=== PATIENT | female | born 1965 | race Caucasian/White ===

== ENCOUNTER 2023-11-14 23:05 | Inpatient (IN) | payer OTHER ==
[~2023-11-14] VITALS: Ht 170.2 cm; Wt 59.6 kg
[2023-11-15] VITALS (9 sets, daily range): BP systolic 98–127; BP diastolic 50–80; PULSE 81–101; RESP 16–20; TEMP 101.7; O2SAT 98
[2023-11-15] MEDS: LIDOCAINE HCL 2% JELLY 5 ML TP SCH
[2023-11-15 00:26] LABS: CREATININE 0.6 mg/dL (0.5-1.0); POTASSIUM 3.4 mmol/L (3.5-5.1)
[2023-11-15 00:30] LABS: BASOPHILS # (AUTO) 0.02 K/uL (0.00-0.20); BASOPHILS % (AUTO) 0.3 % (0.0-5.0); EOSINOPHILS # (AUTO) 0.01 K/uL (0.00-0.70); EOSINOPHILS % (AUTO) 0.2 % (0.0-8.0); HEMATOCRIT 28.2 % (36-48); IMMATURE GRANULOCYTE ABSOLUTE 0.07 K/uL (0-1); LYMPHOCYTES # (AUTO) 1.1 K/uL (1.0-4.8); MEAN CORPUSCULAR HEMOGLOBIN 29.2 pg (27.0-33.0); MEAN CORPUSCULAR HGB CONC 34.8 g/dL (32.0-36.0); MEAN CORPUSCULAR VOLUME 83.9 fL (79-99); MONOCYTES # (AUTO) 0.4 K/uL (0.1-1.0); MONOCYTES % (AUTO) 6.2 % (3.0-13.0); NEUTROPHILS % (AUTO) 75.2 % (40.0-77.0); PLATELET COUNT (AUTO) 196 K/uL (130-400); RED BLOOD CELL COUNT(AUTO) 3.36 MIL/uL (4.00-5.50); RED CELL DISTRIBUTION WIDTH 13.6 % (11.0-15.5); WHITE BLOOD COUNT (AUTO) 6.6 K/uL (4.8-10.8)
[2023-11-15 00:31] LABS: ALBUMIN 1.9 g/dL (3.5-5.0); BILIRUBIN,TOTAL 0.8 mg/dL (0.2-1.0); TOTAL PROTEIN, SERUM 6.5 g/dL (6.0-8.3)
[2023-11-15] MEDS ORDERED: IOHEXOL 350 MG/ML 100ML INFUS..BTL IV ONE (01:02)
[2023-11-15 01:49] LABS: ADD UA MICROSCOPIC YES; APPEARANCE,URINE CLEAR (CLEAR); BILIRUBIN,URINE NEGATIVE (NEGATIVE); COLOR,URINE LIGHT-YELLOW (YELLOW); GLUCOSE, URINE (UA) NEGATIVE (NEGATIVE); KETONES,URINE 10 mg/dL (NEGATIVE); LEUKOCYTE ESTERASE ,URINE NEGATIVE Leu/uL (NEGATIVE); NITRATE,URINE NEGATIVE (NEGATIVE); PROTEIN,URINE NEGATIVE (NEGATIVE); UROBILINOGEN,URINE 0.2 mg/dL (0.2-1.0)
[2023-11-15 01:52] LABS: BACTERIA,URINE FEW /HPF (None Seen); MUCUS,URINE RARE LPF (None Seen); SQUAMOUS EPITHELIAL CELL,UR RARE /HPF (0-2)
[2023-11-15] MEDS ORDERED: PHEN26CR2 RC (02:46)
[2023-11-15] MEDS ORDERED: LIDO5CRE8 TP (02:46)
[2023-11-15] MEDS ORDERED: AMOX-426 PO (02:51)
[2023-11-15] MEDS: 0.9%NACL 1000ML 1,000 ML IV ONE ×2 (04:08)
[2023-11-15] MEDS: CEFTRIAXONE 1G VIAL IVPB ONE (04:10)
[2023-11-15] MEDS: ACETAMINOPHEN 500 MG TABLET PO ONE (04:10)
[2023-11-15] MEDS: LIDOCAINE HCL 2% VISCOUS 15 ML UDCUP ONE (04:17)
[2023-11-15] MEDS ORDERED: ONDANSETRON 4MG INJ IV PRN (05:00)
[2023-11-15] MEDS ORDERED: POTASSIUM CHLORIDE 10% ELIXIR 20 MEQ/15 ML UDCUP PO PRN (05:00)
[2023-11-15] MEDS: CEFTRIAXONE 1G VIAL 1 GM in 0.9%NACL 50ML 50 ML IV SCH (05:00)
[2023-11-15] MEDS: 0.9%NACL 1000ML 1,000 ML IV SCH (05:23)
[2023-11-15] MEDS: METRONIDAZOLE 500MG/100ML BAG 100 ML IV SCH (05:23)
[2023-11-15 06:40] LABS: BASOPHILS # (AUTO) 0.02 K/uL (0.00-0.20); BASOPHILS % (AUTO) 0.3 % (0.0-5.0); EOSINOPHILS # (AUTO) 0.02 K/uL (0.00-0.70); EOSINOPHILS % (AUTO) 0.3 % (0.0-8.0); HEMATOCRIT 23.9 % (36-48); IMMATURE GRANULOCYTE ABSOLUTE 0.06 K/uL (0-1); LYMPHOCYTES # (AUTO) 1.9 K/uL (1.0-4.8); MEAN CORPUSCULAR HEMOGLOBIN 28.5 pg (27.0-33.0); MEAN CORPUSCULAR HGB CONC 33.5 g/dL (32.0-36.0); MEAN CORPUSCULAR VOLUME 85.1 fL (79-99); MONOCYTES # (AUTO) 0.5 K/uL (0.1-1.0); MONOCYTES % (AUTO) 7.7 % (3.0-13.0); NEUTROPHILS # (AUTO) 3.6 K/uL (1.8-7.7); NEUTROPHILS % (AUTO) 59.7 % (40.0-77.0); PLATELET COUNT (AUTO) 170 K/uL (130-400); RED BLOOD CELL COUNT(AUTO) 2.81 MIL/uL (4.00-5.50); RED CELL DISTRIBUTION WIDTH 13.6 % (11.0-15.5)
[2023-11-15 07:04] LABS: ALBUMIN 1.5 g/dL (3.5-5.0); BILIRUBIN,TOTAL 0.6 mg/dL (0.2-1.0); CREATININE 0.6 mg/dL (0.5-1.0); MAGNESIUM 1.8 mg/dL (1.80-2.40); TOTAL PROTEIN, SERUM 5.4 g/dL (6.0-8.3)
[2023-11-15 07:11] LABS: POTASSIUM 2.9 mmol/L (3.5-5.1)
[2023-11-15] MEDS: PANTOPRAZOLE 40 MG/VIAL IVP SCH (08:28)
[2023-11-15] MEDS: KCL 20 MEQ ERTAB PO PRN (08:29)
[2023-11-15] MEDS: POTASSIUM CHLORIDE 20MEQ/100ML 100 ML IV PRN (08:29)
[2023-11-15] MEDS: HYDROCORTISONE 25 MG SUPPOSITORY PR PRN (11:37)
[2023-11-15] MEDS ORDERED: MAGNESIUM 2GM PREMIX 50ML 50 ML IV SCH (13:00)
[2023-11-15] MEDS: POTASSIUM CHLORIDE 20MEQ/100ML 100 ML IV ONE (13:05)
[2023-11-15] MEDS: KCL 20 MEQ ERTAB PO ONE (13:48)
[2023-11-15] MEDS: HEMORRHOIDAL OINTMENT 57 GM CREAM.GM. RC PRN (14:20)
[2023-11-15] MEDS: ACETAMINOPHEN 325 MG TAB PO ONE (15:42)
[2023-11-16] VITALS (8 sets, daily range): BP systolic 119–134; BP diastolic 69–80; PULSE 65–106; RESP 17–18; O2SAT 97
[2023-11-16 06:27] LABS: HEMATOCRIT 24.8 % (36-48); MEAN CORPUSCULAR HGB CONC 33.9 g/dL (32.0-36.0); MEAN CORPUSCULAR VOLUME 85.5 fL (79-99); RED BLOOD CELL COUNT(AUTO) 2.9 MIL/uL (4.00-5.50); RED CELL DISTRIBUTION WIDTH 13.7 % (11.0-15.5); WHITE BLOOD COUNT (AUTO) 5.6 K/uL (4.8-10.8)
[2023-11-16 06:47] LABS: MAGNESIUM 1.6 mg/dL (1.80-2.40)
[2023-11-16] MEDS: CEFTRIAXONE 1G VIAL IVPB SCH (07:02)
[2023-11-16] MEDS: MAGNESIUM 2GM PREMIX 50ML 50 ML IV PRN (08:48)
[2023-11-16] MEDS ORDERED: MAGNESIUM 2GM PREMIX 50ML 50 ML IV SCH (11:00)
[2023-11-16 11:33] LABS: ALBUMIN 1.7 g/dL (3.5-5.0); BILIRUBIN,TOTAL 0.5 mg/dL (0.2-1.0); CREATININE 0.6 mg/dL (0.5-1.0); TOTAL PROTEIN, SERUM 5.9 g/dL (6.0-8.3)
[2023-11-16 11:38] LABS: POTASSIUM 2.9 mmol/L (3.5-5.1)
[2023-11-16] MEDS ORDERED: METRONIDAZOLE 500MG/100ML BAG 100 ML IVPB SCH (14:00)
[2023-11-16] MEDS: PEG 3350/NA SULF,BICARB,CL/KCL 4000 ML SOLN PO ONE (17:49)
[2023-11-16 19:57] LABS: MAGNESIUM 1.9 mg/dL (1.80-2.40); POTASSIUM 3.7 mmol/L (3.5-5.1)
[2023-11-16] MEDS: LACTOBACILLUS RHAMNOSUS GG 1 EACH CAP.SPRINK PO SCH (21:14)
[2023-11-17] VITALS (21 sets, daily range): BP systolic 104–133; BP diastolic 57–89; PULSE 71–105; RESP 18–26; O2SAT 96–98
[2023-11-17 05:54] LABS: MEAN CORPUSCULAR HEMOGLOBIN 28.3 pg (27.0-33.0); MEAN CORPUSCULAR VOLUME 85.5 fL (79-99); RED BLOOD CELL COUNT(AUTO) 2.69 MIL/uL (4.00-5.50); RED CELL DISTRIBUTION WIDTH 13.9 % (11.0-15.5); WHITE BLOOD COUNT (AUTO) 6.2 K/uL (4.8-10.8)
[2023-11-17 06:11] LABS: ALBUMIN 1.5 g/dL (3.5-5.0); BILIRUBIN,TOTAL 0.5 mg/dL (0.2-1.0); CREATININE 0.5 mg/dL (0.5-1.0); MAGNESIUM 1.5 mg/dL (1.80-2.40); POTASSIUM 3.3 mmol/L (3.5-5.1); TOTAL PROTEIN, SERUM 5.3 g/dL (6.0-8.3)
[2023-11-17] MEDS ORDERED: PROPOFOL 10 MG/ML 20ML VIAL IV ONE ×2 (07:45→08:35)
[2023-11-17] MEDS ORDERED: GLYCOPYRROLATE 0.2 MG/ML 5 ML VIAL ONE (08:35)
[2023-11-17] MEDS: POTASSIUM CHLORIDE 20MEQ/100ML 100 ML IV ONE (12:30)
[2023-11-17] MEDS ORDERED: MAGNESIUM 2GM PREMIX 50ML 50 ML IV SCH (12:30)
[2023-11-18] VITALS (7 sets, daily range): BP systolic 130–143; BP diastolic 75–92; PULSE 90–110; RESP 16–19; O2SAT 96–99
[2023-11-18 01:10] LABS: C DIFFICILE TOXIN A/B Not Detected (Not Detected); ENTEROAGGREGATIVE ECOLI Not Detected (Not Detected); GIARDIA LAMBLIA Not Detected (Not Detected); PLESIOMONAS SHIGELOIDES Not Detected (Not Detected); SAPOVIRUS Not Detected (Not Detected); SHIGELLA/ENTEROINVASIVE E COLI Not Detected (Not Detected); VIBRIO Not Detected (Not Detected); VIBRIO CHOLERAE Not Detected (Not Detected)
[2023-11-18 04:36] LABS: HEMATOCRIT 27.1 % (36-48); MEAN CORPUSCULAR HEMOGLOBIN 28.6 pg (27.0-33.0); MEAN CORPUSCULAR HGB CONC 33.2 g/dL (32.0-36.0); RED BLOOD CELL COUNT(AUTO) 3.15 MIL/uL (4.00-5.50); RED CELL DISTRIBUTION WIDTH 13.8 % (11.0-15.5); WHITE BLOOD COUNT (AUTO) 6.5 K/uL (4.8-10.8)
[2023-11-18 04:55] LABS: ALBUMIN 1.6 g/dL (3.5-5.0); BILIRUBIN,TOTAL 0.7 mg/dL (0.2-1.0); CREATININE 0.5 mg/dL (0.5-1.0); MAGNESIUM 1.6 mg/dL (1.80-2.40); TOTAL PROTEIN, SERUM 5.5 g/dL (6.0-8.3)
[2023-11-18 04:58] LABS: POTASSIUM 2.9 mmol/L (3.5-5.1)
[2023-11-18] MEDS ORDERED: MAGNESIUM 2GM PREMIX 50ML 50 ML IV SCH (10:00)
[2023-11-18] MEDS ORDERED: POTASSIUM CHLORIDE 20MEQ/100ML 100 ML IV ONE (10:00)
[2023-11-18] MEDS: KCL 20 MEQ ERTAB PO ONE ×2 (14:43→18:45)
[2023-11-18 17:55] LABS: POTASSIUM 3.5 mmol/L (3.5-5.1)
[2023-11-19] VITALS: BP 137/94; PULSE 102; RESP 18
[2023-11-19 03:41] LABS: HEMATOCRIT 26.8 % (36-48); MEAN CORPUSCULAR HEMOGLOBIN 27.9 pg (27.0-33.0); MEAN CORPUSCULAR HGB CONC 33.6 g/dL (32.0-36.0); RED BLOOD CELL COUNT(AUTO) 3.23 MIL/uL (4.00-5.50); RED CELL DISTRIBUTION WIDTH 13.9 % (11.0-15.5); WHITE BLOOD COUNT (AUTO) 6.4 K/uL (4.8-10.8)
[2023-11-19 04:00] VITALS: BP 140/92; PULSE 96; RESP 16
[2023-11-19 04:01] LABS: ALBUMIN 1.5 g/dL (3.5-5.0); BILIRUBIN,TOTAL 0.6 mg/dL (0.2-1.0); CREATININE 0.5 mg/dL (0.5-1.0); MAGNESIUM 1.6 mg/dL (1.80-2.40); POTASSIUM 3.7 mmol/L (3.5-5.1); TOTAL PROTEIN, SERUM 5.3 g/dL (6.0-8.3)
[2023-11-19 08:00] VITALS: O2SAT 99
[2023-11-19 08:49] VITALS: BP 126/77; PULSE 100; RESP 20
[2023-11-19] MEDS ORDERED: MAGNESIUM 2GM PREMIX 50ML 50 ML IV SCH (10:00)
[2023-11-19] MEDS ORDERED: PHEN57OI3 RC (10:17)
[2023-11-19] MEDS: KCL 20 MEQ ERTAB PO ONE (10:44)
[2023-11-19 12:19] VITALS: BP 121/77; PULSE 104; RESP 20
== END 2023-11-19 14:20 | disposition home or self-care (01) | DRG 871 ==
LOC: EDH 23:05 → EDHIP 11-15 04:40 → 3BH 11-15 05:19
PROVIDERS: ADMIT Hospitalist; ATTEND Hospitalist
PROC: 0DBB8ZX Excision of Ileum, Via Natural or Artificial Opening Endoscopic, Diagnostic (ICD-10-PCS; principal; 2023-11-17)
PROC: 0DBN8ZX Excision of Sigmoid Colon, Via Natural or Artificial Opening Endoscopic, Diagnostic (ICD-10-PCS; 2023-11-17)
PROC: 30233N1 Transfusion of Nonautologous Red Blood Cells into Peripheral Vein, Percutaneous Approach (ICD-10-PCS; 2023-11-17)
DX: A41.9 Sepsis, unspecified organism (principal); E43 Unspecified severe protein-calorie malnutrition; E86.0 Dehydration; K64.2 Third degree hemorrhoids; D64.9 Anemia, unspecified; E87.6 Hypokalemia; K44.9 Diaphragmatic hernia without obstruction or gangrene; K80.20 Calculus of gallbladder without cholecystitis without obstruction; K57.30 Diverticulosis of large intestine without perforation or abscess without bleeding; Z68.20 Body mass index [BMI] 20.0-20.9, adult
CPT/HCPCS: 36415; 36430; 45380; 74177; 80053; 81001; 82150; 82270; 82306; 82607; 82948; 83605; 83690; 83735; 84132; 84145; 85025; 85027; 86850; 86900; 86901; 86923; 87040; 87077; 87186; 87324; 87507; 88305; C9113; G0378; J0696; J2704; J3475; J3480; J3490; J7030; P9016; Q9967; A4215; A4216; A4222; A4223; A4620; A4657